=== PATIENT | female | born 1990 | race Caucasian/White ===

== ENCOUNTER 2017-04-18 19:05 | Emergency (ER) | payer OTHER ==
[~2017-04-18] VITALS: Ht 160 cm; Wt 72.6 kg
[2017-04-18] MEDS ORDERED: ONDANSETRON HCL4 M2 PO (19:34)
[2017-04-18] MEDS ORDERED: HYDROXYZINE HCL25 M1 PO (19:35)
[2017-04-18] MEDS ORDERED: SPIRONOLACTONE25 M1 PO (19:35)
[2017-04-18] MEDS ORDERED: MELATONIN3 MG PO (19:35)
[2017-04-18] MEDS ORDERED: DEPO-TESTO100 MG/1 M IM (19:37)
[2017-04-18 20:11] LABS: CALCIUM 9.4 mg/dL (8.5-10.1); CREATININE 1.1 mg/dL (0.6-1.0); POTASSIUM 3.4 mmol/L (3.5-5.1)
[2017-04-18 20:15] LABS: HEMATOCRIT 43.9 % (37.0-47.0); HEMOGLOBIN 14.9 gm/dL (12.0-15.0); MCH 26.4 pg (26.0-34.0); MCV 77.6 fL (80.0-100.0); PLATELET COUNT 292 thou/uL (150-400); RBC 5.66 mil/uL (4.20-5.00); RDW 12.7 % (10.5-14.5); WBC 14.7 thou/uL (4.0-11.0)
[2017-04-18 20:18] LABS: ALBUMIN 4.1 g/dL (3.4-5.0); TOTAL BILIRUBIN 0.6 mg/dL (<0.1-1.0); TOTAL PROTEIN 7.7 g/dL (6.4-8.2)
[2017-04-18 20:33] LABS: ABSOLUTE NEUTROPHILS 12.8 thou/uL (1.4-8.2); ANISOCYTOSIS 1+; POLYCHROMASIA OCCASIONAL
[2017-04-18] MEDS ORDERED: PRILOSEC 20 MG20 MG PO (21:09)
[2017-04-18] MEDS ORDERED: PROMS25 WY RECTAL (21:09)
[2017-04-18] MEDS ORDERED: MAG-OXIDE400 MG PO (21:10)
== END 2017-04-18 22:01 | disposition home or self-care (01) ==
LOC: ER 19:05
PROVIDERS: Emergency Medicine
DX: R11.2 Nausea with vomiting, unspecified (principal); R19.7 Diarrhea, unspecified; F41.9 Anxiety disorder, unspecified; E83.42 Hypomagnesemia; R00.0 Tachycardia, unspecified; F32.9 Major depressive disorder, single episode, unspecified; F42.9 Obsessive-compulsive disorder, unspecified